=== PATIENT | female | born 1940 | race American Indian/Alaskan Native ===

== ENCOUNTER 2017-08-04 06:09 | Day surgery (SDC) | payer MEDICARE, BC ==
[2017-08-04] MEDS ORDERED: fentaNYL 100 MCG/2 ML SDV IV ONE ×3 (06:10→07:55)
[2017-08-04] MEDS ORDERED: Midazolam 1 MG/ML 2 ML SDV IV ONE ×3 (06:10→07:57)
[2017-08-04] MEDS ORDERED: fentaNYL 100 MCG/2 ML SDV ONE (06:15)
[2017-08-04] MEDS ORDERED: Midazolam 1 MG/ML 2 ML SDV ONE (06:15)
[2017-08-04] MEDS ORDERED: Sodium Chloride 0.9% 10 ML Syringe FLUSH PRN (07:30)
[2017-08-04] MEDS ORDERED: Dextrose 5%-0.45% NaCl 1,000 ML IV SCH (07:30)
--- NOTE | 2017-08-04 09:50 | OR ---
DATE: 08/04/2017 PROCEDURE: Esophagogastroduodenoscopy, NBI, and multiple pinch biopsies. INSTRUMENT USED: GIF-H180 Olympus video panendoscope. PREMEDICATIONS: No oral topical anesthesia used. Fentanyl 100 mcg intravenous, Versed 2 mg intravenous. Nasal 2 L O2 cannula. The procedure was done under pulse oximetry, BP recording, and radiographer cardiac catheterization. INDICATION: The patient with persistent heartburn as well as dysphagia on long- term NSAIDs. Esophagogastroduodenoscopy is performed for detection of any active erosive lesions, Katz's esophagus and/or malignancy also under consideration, H. pylori status to be determined. Esophageal dilatations if indicated, endoscopic hemostasis therapy if needed. DESCRIPTION OF PROCEDURE: The scope was passed with ease. Adequate visualization of the esophagus was made from proximal to distal areas. No upper esophageal lesions identified. There was some stricture of the distal esophagus, but the tip of the scope was passed with ease to visualize the gastric mucosa. No esophageal polyp or tumor mass identified. No uphill or downhill esophageal varices noted. Sliding hiatal hernia was present. Grade D erosive changes were noted by Bock criteria. No proximal gastric varices noted. Gastric fundus examination by retroflexion showed no polypoid lesions. No gastric ulcer, malignant mass, or vascular ectasia identified. Duodenal bulb showed no ulcer. Visualized second part of the duodenum was unremarkable. Multiple pinch biopsies were taken from the gastric antrum and proximal body, and sent for PyloriTek test and if negative in an hour, tissues to be sent for histopathology. Photographs including NBI views were taken of the esophagus. No bleeding was noted from any of the visualized areas at the completion of examination. IMPRESSION: 1. Grade D gastroesophageal reflux disease. 2. Peptic esophageal stricture. 3. Sliding hiatal hernia. The patient tolerated the procedure well. [facility] /[id number]
[2017-08-04 11:04] VITALS: BP 143/76
== END 2017-08-04 10:09 | disposition home or self-care (01) ==
LOC: DL.ENDO 06:09
PROVIDERS: ATTEND Internal Medicine Gastroenterology
DX: K22.2 Esophageal obstruction (principal); K44.9 Diaphragmatic hernia without obstruction or gangrene; K21.9 Gastro-esophageal reflux disease without esophagitis; I10 Essential (primary) hypertension; E78.5 Hyperlipidemia, unspecified; Z88.8 Allergy status to other drugs, medicaments and biological substances; Z79.1 Long term (current) use of non-steroidal anti-inflammatories (NSAID); Z98.890 Other specified postprocedural states
CPT/HCPCS: 43239; 87077; J2250; J3010; J7042; 88305

== ENCOUNTER 2019-10-15 09:50 | Emergency (ER) | payer MEDICARE, BC ==
[2019-10-15 10:06] VITALS: BP 183/74; PULSE 76
--- NOTE | 2019-10-15 10:22 | EDM.PDOC ---
ED HPI GENERAL MEDICAL PROBLEM - General Chief Complaint: Cardiovascular Problem Stated Complaint: PULSE RACING/SPIKED BLOOD PRESSURE Time Seen by Provider: 10/15/19 10:21 Source of Information: Reports: Patient, Old Records, RN, RN Notes Reviewed History Limitations: Reports: No Limitations - History of Present Illness INITIAL COMMENTS - FREE TEXT/NARRATIVE: Pt presents to ER from home by POV appearing extremely anxious with c/o "spiked blood pressure and racing heart". She was immediately roomed and found by the triage nurse to have a BP of 183/74 and a heart rate of 76. Pt states that she may have been shaking from fear and that caused her to perceive her heart rate as rapid, but she is relieved to find that it is only 76 beats per minute. Pt states that she has a history of difficult to control BP and has had allergic or adverse reactions to "every single blood pressure or cholesterol medicine" they have tried her on. She denies chest pain, shortness of breath, nausea, palpitations, edema, orthopnea, cough, fever, or rash. She complains that her mouth and lips are very dry, and she is certain that is due to the Clonidine that her doctor started her on 3 weeks ago. She admits the her BP has been improved since starting Clonidine, with the exception of this morning. Pt states that she had preferred to have a trial of observation for her BP to see if eliminating caffeine and making some life style changes would help control her BP, but her doctor insisted she start medication. Onset: Today Duration: Constant Location: Reports: Generalized Quality: Reports: Other (Denies pain) Severity: Severe Improves with: Reports: None Worsens with: Reports: None Associated Symptoms: Reports: No Other Symptoms - Related Data Allergies Allergy/AdvReac Type Severity Reaction Status Date / Time atorvastatin calcium Allergy Mild muscle pain Verified 10/15/19 11:15 [From Lipitor] hydrochlorothiazide Allergy Mild electrolyte Verified 10/15/19 11:15 imbalance rosuvastatin calcium Allergy Mild muscle pain Verified 10/15/19 11:15 [From Crestor] simvastatin Allergy Mild muscle pain Verified 10/15/19 11:15 amlodipine Allergy Unknown Swollen Verified 10/15/19 11:15 Tongue lisinopril Allergy Unknown Cough Verified 10/15/19 11:15 pravastatin Allergy Unknown Muscle Verified 10/15/19 11:15 Aches Home Meds: Home Meds Levothyroxine 50 mcg PO DAILY 11/16/16 [History] Ascorbic Acid 500 mg PO DAILY 08/03/17 [History] Aspirin 81 mg PO DAILY 08/03/17 [History] Calcium Carbonate/Vitamin D3 [Calcium 600 + Vit D 200] 2 tab PO DAILY 08/03/17 [ History] Ibuprofen 400 mg PO Q4H PRN 08/03/17 [History] Multivitamin with Minerals [Multiple Vitamin] 1 tab PO DAILY 08/03/17 [History] diphenhydrAMINE HCl [Benadryl Allergy] 25 mg PO BID PRN 08/03/17 [History] cloNIDine [Catapres] 0.1 mg PO DAILY 10/15/19 [History] Past Medical History HEENT History: Reports: Allergic Rhinitis, Cataract, Impaired Vision, Macular Degeneration, Other (See Below) Other HEENT History: wears glasses. HX OF DYSPHAGIA. IMPLANTED BRIDGE Cardiovascular History: Reports: Heart Murmur, High Cholesterol, Hypertension, Other (See Below) Other Cardiovascular History: 08/04/17 Has been on hypertension and cholesterol meds in past. No longer needing to take them. 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: Other (See Below) Other SHOWROOM SALESPERSON History: POSTMENOPAUSAL Musculoskeletal History: Reports: None Other Musculoskeletal History: DEGENERATIVE JOINT DISEASE Neurological History: Reports: None Psychiatric History: Reports: None Endocrine/Metabolic History: Reports: Hypothyroidism Hematologic History: Reports: None Immunologic History: Reports: None Oncologic (Cancer) History: Reports: None Dermatologic History: Reports: None Other Dermatologic History: HX OF SHINGLES X2 - Infectious Disease History Infectious Disease History: Reports: Chicken Pox, Measles, Mumps, Shingles - Past Surgical History Head Surgeries/Procedures: Reports: None HEENT Surgical History: Reports: Oral Surgery Cardiovascular Surgical History: Reports: Varicose, Vascular Surgery Other Cardiovascular Surgeries/Procedures: VARICOSE VEIN SURGERY Respiratory Surgical History: Reports: None GI Surgical History: Reports: None Female Surgical History: Reports: None Endocrine Surgical History: Reports: Other (See Below) Other Endocrine Surgeries/Procedures: S/P HYPOTHYRIOD TREATMENT - RADIOACTIVE ABLATION Neurological Surgical History: Reports: None Musculoskeletal Surgical History: Reports: None Oncologic Surgical History: Reports: Other (See Below) Other Oncologic Surgeries/Procedures: S/P BASAL CELL SKIN TX Dermatological Surgical History: Reports: None, Skin Biopsy Social & Family History - Family History Cardiac: Reports: Heart Murmur, Other (See Below) Other Cardiac Family History: HEART VALVE R/T DIFFICULTIES Endocrine/Metabolic: Reports: Other (See Below) Other Endocrine/Metabolic Family History: THYRIOD DISEASE - Caffeine Use Caffeine Use: Reports: Tea Other Caffeine Use: AVERAGE OF 6 CUPS DAILY - Living Situation & Occupation Occupation: Retired ED ROS GENERAL - Review of Systems Review Of Systems: Comprehensive ROS is negative, except as noted in HPI. ED EXAM, GENERAL - Physical Exam Exam: See Below Exam Limited By: No Limitations General Appearance: Alert, WD/WN, No Apparent Distress, Anxious Eye Exam: Bilateral Eye: EOMI, Normal Inspection, PERRL Nose: Normal Inspection, Normal Mucosa, No Blood Throat/Mouth: Normal Inspection, Normal Lips, Normal Teeth, Normal Gums, Normal Oropharynx, Normal Voice, No Airway Compromise Head: Atraumatic, Normocephalic Neck: Normal Inspection, Supple, Non-Tender, Full Range of Motion Respiratory/Chest: No Respiratory Distress, Lungs Clear, Normal Breath Sounds, No Accessory Muscle Use, Chest Non-Tender Cardiovascular: Regular Rate, Rhythm, No Edema, Systolic Murmur (2/6, consist with Hx of A.S.) GI/Abdominal: Normal Bowel Sounds, Soft, Non-Tender, No Organomegaly, No Distention, No Abnormal Bruit, No Mass Back Exam: Normal Inspection Extremities: Normal Inspection, Normal Range of Motion, Non-Tender, Normal Capillary Refill, No Pedal Edema Neurological: Alert, Oriented, CN II-XII Intact, Normal Cognition, Normal Gait, No Motor/Sensory Deficits Psychiatric: Anxious Skin Exam: Warm, Dry, Intact, Normal Color, No Rash EKG INTERPRETATION EKG Date: 10/15/19 Time: 10:32 Rhythm: Other (SR) Rate (Beats/Min): 60 [place]: Normal P-Wave: Present QRS: Other (Early precordial R/S transition) ST-T: Normal QT: Normal Comparison: NA - No Prior EKG Course - Vital Signs Last Recorded V/S: Last Vital Signs Temp 98.7 F 10/15/19 10:01 Pulse 76 10/15/19 10:01 Resp 18 10/15/19 10:01 BP 183/74 H 10/15/19 10:01 Pulse Ox 99 10/15/19 10:01 - Orders/Labs/Meds Orders: Active Orders 24 hr Category Date Time Status EKG 12 Lead [EKG Documentation Completion] [RC] STAT Care 10/15/19 10:26 Active Labs: Laboratory Tests 10/15/19 10/15/19 10/15/19 Range/Units 10:36 10:36 10:36 WBC 5.0 (5.0-10.0) 10^3/uL RBC 4.35 (4.2-5.4) 10^6/uL Hgb 11.5 L D (12.0-16.0) g/dL Hct 35.8 L (37.0-47.0) % MCV 82.3 D (80-100) fL MCH 26.4 L (27.0-34.0) pg MCHC 32.1 L (33.0-35.0) g/dL Plt Count 185 (150-450) 10^3/uL Neut % (Auto) 65.5 (42.2-75.2) % Lymph % (Auto) 22.6 (20.5-50.1) % [place]ron % (Auto) 9.3 H (2-8) % Eos % (Auto) 2.2 (1.0-3.0) % Baso % (Auto) 0.4 (0.0-1.0) % Sodium 137 (135-145) mmol/L Potassium 4.5 (3.6-5.0) mmol/L Chloride 104 (101-111) mmol/L Carbon Dioxide 25.0 (21.0-31.0) mmol/L Anion Gap 12.5 BUN 19 H (7-18) mg/dL Creatinine 1.0 (0.6-1.3) mg/dL Est Cr Clr Drug Dosing 39.39 mL/min Estimated GFR (MDRD) 53 BUN/Creatinine Ratio 19.00 Glucose 101 (74-105) mg/dL Calcium 9.1 (8.4-10.2) mg/dl Magnesium 1.9 (1.8-2.5) mg/dL Total Bilirubin 0.8 (0.2-1.0) mg/dL AST 21 (10-42) IU/L ALT 19 (10-60) IU/L Alkaline Phosphatase 46 (42-121) IU/L Troponin I < 0.02 (0.00-0.02) ng/ml Total Protein 6.7 (6.7-8.2) g/dl Albumin 3.8 (3.2-5.5) g/dl Globulin 2.9 Albumin/Globulin Ratio 1.31 TSH, Ultra Sensitive 7.79 H (0.45-5.33) uIu/mL - Re-Assessments/Exams Free Text/Narrative Re-Assessment/Exam: 10/15/19 11:29 I discussed the pt's case, exam findings, and diagnostic results with Nikole Crockett EXECUTIVE CHAIRMAN (pt's PCP). Nikole agrees to f/u with the pt in clinic this week. Departure - Departure Time of Disposition: 11:30 Disposition: Home, Self-Care 01 Condition: Good Clinical Impression: Systolic hypertension, isolated Anemia Qualifiers: Anemia type: unspecified type Qualified Code(s): D64.9 - Anemia, unspecified Instructions: Managing Your Hypertension, Anemia Forms: ED Department Discharge Additional Instructions: Follow up in clinic this week with Nikole Crockett. Sepsis Event Note - Evaluation Sepsis Screening Result: No Definite Risk - Focused Exam Vital Signs: Vital Signs Temp Pulse Resp BP Pulse Ox 10/15/19 10:01 98.7 F 76 18 183/74 H 99 Date Exam was Performed: 10/15/19 Time Exam was Performed: 11:29 - My Orders Last 24 Hours: My Active Orders 10/15/19 10:26 EKG 12 Lead [EKG Documentation Completion] [RC] STAT - Assessment/Plan Last 24 Hours: My Active Orders 10/15/19 10:26 EKG 12 Lead [EKG Documentation Completion] [RC] STAT
[2019-10-15 11:02] LABS: ANION GAP 12.5; CHLORIDE,CL 104 mmol/L (101-111); SODIUM,NA 137 mmol/L (135-145)
== END 2019-10-15 11:48 | disposition home or self-care (01) ==
LOC: DL.ED 09:50
DX: I10 Essential (primary) hypertension (principal); Z79.899 Other long term (current) drug therapy
CPT/HCPCS: 36415; 80053; 83735; 84443; 84484; 85025; 93005; 99285-25